=== PATIENT | female | born 1985 ===

== ENCOUNTER → 2019-05-28 | Outpatient (CLI) | payer OTHER | END | disposition home or self-care (01) | LOC: RX STUDY 05-27 10:15 | DX: R10.2 Pelvic and perineal pain (principal) ==

== ENCOUNTER 2020-08-24 17:13 | Inpatient (IN) | payer OTHER ==
[~2020-08-24] VITALS: Ht 162.6 cm; Wt 69.4 kg
[2020-08-24] MEDS ORDERED: PRENATAL + DHA1 EAC1 PO (23:18)
[2020-08-27] MEDS ORDERED: Tylenol #3 PO (08:53)
== END 2020-08-27 13:55 | disposition home or self-care (01) | DRG 806 ==
LOC: LDR 17:13 → SURG-SUITE 08-26 13:51
PROVIDERS: ADMIT Obstetrics & Gynecology; ATTEND Obstetrics & Gynecology
PROC: 3E0P7VZ Introduction of Hormone into Female Reproductive, Via Natural or Artificial Opening (ICD-10-PCS; 2020-08-24)
PROC: 4A1HXFZ Monitoring of Products of Conception, Cardiac Rhythm, External Approach (ICD-10-PCS; 2020-08-24)
PROC: 10E0XZZ Delivery of Products of Conception, External Approach (ICD-10-PCS; principal; 2020-08-25)
PROC: 0KQM0ZZ Repair Perineum Muscle, Open Approach (ICD-10-PCS; 2020-08-25)
PROC: 10907ZC Drainage of Amniotic Fluid, Therapeutic from Products of Conception, Via Natural or Artificial Opening (ICD-10-PCS; 2020-08-25)
PROC: 3E033VJ Introduction of Other Hormone into Peripheral Vein, Percutaneous Approach (ICD-10-PCS; 2020-08-25)
DX: O70.1 Second degree perineal laceration during delivery (principal); O41.03X0 Oligohydramnios, third trimester, not applicable or unspecified; Z37.0 Single live birth; Z3A.39 39 weeks gestation of pregnancy

== ENCOUNTER 2023-06-12 06:51 | Day surgery (SDC) | payer OTHER ==
[2023-06-10 12:19] LABS: HEMATOCRIT 37.8 % (36.0-45.00); HEMOGLOBIN 12.8 g/dL (12.0-15.00); MEAN CELL VOLUME 88.5 fL (80.00-100.00); MEAN CORPUSCULAR HGB CONC 33.9 g/dl (32.0-36.0); PLATELET COUNT 211 K/uL (150-450); RED BLOOD COUNT 4.27 M/uL (4.00-6.00)
[2023-06-10 12:32] LABS: INR 1.03; PARTIAL THROMBOPLASTIN TIME 26.5 SECONDS (22.0-34.0); PROTHROMBIN TIME 10.8 SECONDS (9.0-11.5)
[~2023-06-12 06:51] MED LIST: PRENATAL + DHA1 EAC1 PO; Tylenol #3 PO
== END 2023-06-12 16:35 | disposition home or self-care (01) ==
LOC: CIR.AMB 06:51
PROVIDERS: ATTEND Obstetrics & Gynecology Maternal & Fetal Medicine
DX: O02.1 Missed abortion (principal); O72.2 Delayed and secondary postpartum hemorrhage; Z88.0 Allergy status to penicillin; Z20.822 Contact with and (suspected) exposure to COVID-19

== ENCOUNTER 2024-04-13 13:15 | Inpatient (IN) | payer OTHER ==
[~2024-04-13] VITALS: Ht 162.6 cm; Wt 69.4 kg
[2024-04-22] VITALS (7 sets, daily range): BP systolic 106–135; BP diastolic 46–87
[2024-04-22] MEDS ORDERED: ECOTRIN81 MG PO (08:55)
[2024-04-22] MEDS ORDERED: VISTARIL25 MG PO (08:56)
[2024-04-22] MEDS ORDERED: ZOLOFT50 MG PO (08:56)
[2024-04-22] MEDS ORDERED: RINGERS SOLUTION,LACTATED 1,000 ML IV SCH (09:30)
[2024-04-22] MEDS ORDERED: OXYTOCIN 500 ML IV SCH (09:30)
[2024-04-22 09:39] LABS: HEMATOCRIT 35.5 % (36.0-45.00); HEMOGLOBIN 12.1 g/dL (12.0-15.00); MEAN CELL VOLUME 86.7 fL (80.00-100.00); MEAN CORPUSCULAR HEMOGLOBIN 29.7 pg (27.00-32.0); MEAN CORPUSCULAR HGB CONC 34.2 g/dl (32.0-36.0); PLATELET COUNT 193 K/uL (150-450); RED BLOOD COUNT 4.09 M/uL (4.00-6.00)
[2024-04-22 10:05] LABS: INR < 0.93; PARTIAL THROMBOPLASTIN TIME 24.3 SECONDS (22.0-34.0); PROTHROMBIN TIME 10.1 SECONDS (9.0-11.5)
[2024-04-22 10:27] LABS: ALBUMIN 2.8 gm/dL (3.4-5.0); BILIRUBIN TOTAL 0.42 mg/dL (0.3-1.2); CREATININE SERUM 0.47 mg/dL (0.55-1.02); GFR 147.52; GLOBULINA 3.7 G/DL (2.4-3.5); POTASSIUM 4.05 mEq/L (3.5-5.1); TOTAL PROTEIN 6.5 gm/dL (6.4-8.2)
[2024-04-22] MEDS ORDERED: IBUprofen 400 MG TABLET PO PRN (16:30)
[2024-04-22] MEDS ORDERED: OXYTOCIN 1,000 ML IV SCH (16:30)
[2024-04-22] MEDS ORDERED: CHLORHEXIDINE GLUCONATE 120 ML BOTTLE TP SCH (16:30)
[2024-04-22] MEDS ORDERED: NALOXONE HCL 0.4 MG/ML AMPUL IM ONE (17:00)
[2024-04-22] MEDS ORDERED: ERYTHROMYCIN BASE OPHT 1GM EACH TUBE OP ONE (17:00)
[2024-04-22] MEDS ORDERED: METHYLERGONOVINE MALEATE 0.2 MG/ML AMPUL IM ONE (17:00)
[2024-04-23 00:17] VITALS: BP 101/66
[2024-04-23 06:31] LABS: HEMATOCRIT 31.1 % (36.0-45.00); HEMOGLOBIN 10.6 g/dL (12.0-15.00); MEAN CELL VOLUME 86.8 fL (80.00-100.00); MEAN CORPUSCULAR HEMOGLOBIN 29.5 pg (27.00-32.0); PLATELET COUNT 199 K/uL (150-450); RED BLOOD COUNT 3.58 M/uL (4.00-6.00); RED CELL DISTRIBUTION WIDTH 12.9 % (11.5-14.5)
[2024-04-23 08:42] VITALS: BP 111/74
[2024-04-23 17:03] VITALS: BP 102/64
[2024-04-24 00:26] VITALS: BP 112/69
[2024-04-24 08:00] VITALS: BP 116/78
== END 2024-04-24 13:48 | disposition home or self-care (01) | DRG 807 ==
LOC: LDR 04-22 07:35 → OB/GYN 04-22 16:25
PROVIDERS: Obstetrics & Gynecology; ADMIT Obstetrics & Gynecology Gynecology; ATTEND Obstetrics & Gynecology Gynecology
PROC: 10E0XZZ Delivery of Products of Conception, External Approach (ICD-10-PCS; principal; 2024-04-22)
PROC: 0KQM0ZZ Repair Perineum Muscle, Open Approach (ICD-10-PCS; 2024-04-22)
PROC: 4A1HXCZ Monitoring of Products of Conception, Cardiac Rate, External Approach (ICD-10-PCS; 2024-04-22)
DX: O70.1 Second degree perineal laceration during delivery (principal); Z37.0 Single live birth; Z3A.38 38 weeks gestation of pregnancy; Z20.822 Contact with and (suspected) exposure to COVID-19